=== PATIENT | female | born 1970 | race Two or more races ===

== ENCOUNTER 2017-12-09 17:18 | Emergency (ER) | payer OTHER ==
[~2017-12-09] VITALS: Ht 170.2 cm; Wt 111.1 kg
[2017-12-09 17:27] VITALS: BP 174/103
== END 2017-12-09 20:18 | disposition home or self-care (01) ==
LOC: ER 17:20
DX: F41.9 Anxiety disorder, unspecified (principal); I10 Essential (primary) hypertension; F17.200 Nicotine dependence, unspecified, uncomplicated; F12.10 Cannabis abuse, uncomplicated; Z91.19 Patient's noncompliance with other medical treatment and regimen
CPT/HCPCS: 73000-TC; A4606; Z7610

== ENCOUNTER 2018-02-14 09:59 | Emergency (ER) | payer OTHER ==
[~2018-02-14] VITALS: Ht 170.2 cm; Wt 90.7 kg
[2018-02-14 10:04] VITALS: BP 146/87
== END 2018-02-14 11:05 | disposition home or self-care (01) ==
LOC: ER 10:01
DX: J02.9 Acute pharyngitis, unspecified (principal); F17.200 Nicotine dependence, unspecified, uncomplicated
CPT/HCPCS: 99283; A4606; Z7610